=== PATIENT | female | born 2000 | race Hispanic/Latino ===

== ENCOUNTER 2024-11-10 22:09 | Emergency (ER) | payer SELFPAY ==
[~2024-11-10] VITALS: Ht 154.9 cm; Wt 69.0 kg
[~2024-11-10 22:09] MED LIST: ADVIL200 MG PO; BENADRYL25 MG PO; CYCLOBENZAPRINE10 MG PO; ZYRTEC10 MG PO
[2024-11-10 23:10] VITALS: BP 115/74
== END 2024-11-10 23:09 | disposition home or self-care (01) ==
LOC: ED 22:09
DX: S83.91XA Sprain of unspecified site of right knee, initial encounter (principal); X58.XXXA Exposure to other specified factors, initial encounter; Z88.0 Allergy status to penicillin
CPT/HCPCS: 73560; 99283